=== PATIENT | female | born 1985 | race Caucasian/White ===

== ENCOUNTER 2019-03-25 23:10 | Outpatient (CLI) | payer MEDICAID | END 2019-03-26 03:31 | disposition home or self-care (01) | LOC: OBT 23:10 → L-D 23:12 | DX: O47.1 False labor at or after 37 completed weeks of gestation (principal); Z3A.38 38 weeks gestation of pregnancy | CPT/HCPCS: 76818 ==

== ENCOUNTER 2019-03-30 22:28 | Inpatient (IN) | payer MEDICAID ==
[2019-03-30] MEDS ORDERED: LACTATED RINGER'S 1,000 ML IV (23:21)
[2019-03-30 23:26] LABS: ADD UMIC NO; UR ASCORBIC ACID NEGATIVE (NEGATIVE); UR BILIRUBIN (Dip) NEGATIVE (NEGATIVE); UR BLOOD (Dip) NEGATIVE (NEGATIVE); UR CLARITY CLEAR (CLEAR); UR COLOR YELLOW (YELLOW); UR GLUCOSE (Dip) NEGATIVE (NEGATIVE); UR KETONES (Dip) NEGATIVE (NEGATIVE); UR LEUKOCYTE ESTERASE (Dip) NEGATIVE Leu/ul (NEGATIVE); UR NITRITE (Dip) NEGATIVE (NEGATIVE); UR SPECIFIC GRAVITY (Dip) 1.011 (1.003-1.030); UR TOTAL PROTEIN (Dip) NEGATIVE (NEGATIVE); UR UROBILINOGEN (Dip) NEGATIVE (NEGATIVE)
[2019-03-30] MEDS ORDERED: METHYLERGONOVINE 0.2 MG INJ IM (23:30)
[2019-03-30] MEDS ORDERED: OXYTOCIN 30 UNITS/LR 500 ML IV ×2 (23:30)
[2019-03-30] MEDS ORDERED: MISOPROSTOL 200 MCG TAB PR (23:30)
[2019-03-30] MEDS ORDERED: CARBOPROST 250 MCG INJ IM (23:30)
[2019-03-30] MEDS ORDERED: BUTORPHANOL 2 MG INJ IV (23:30)
[2019-03-30] MEDS ORDERED: LIDOCAINE 1% (MPF) 30 ML INJ INJ (23:30)
[2019-03-31] MEDS: LACTATED RINGER'S 1,000 ML IV ×2 (00:03→06:40)
[2019-03-31 00:23] LABS: ADD MAN DIFF? NO
[2019-03-31 00:28] LABS: BASOPHIL # 0.1 10^3/ul (0.0-0.1); BASOPHILS % 0.5 % (0.0-2.0); EOSINOPHILS # 0.2 10^3/ul (0.0-0.5); EOSINOPHILS % 1.4 % (0.0-7.0); HEMATOCRIT 37.2 % (37.0-47.0); HEMOGLOBIN 12.8 g/dl (12.0-16.0); MEAN CORPUSCULAR HEMOGLOBIN 31.8 pg (29.0-33.0); MEAN CORPUSCULAR HGB CONC 34.4 g/dl (32.0-37.0); MEAN CORPUSCULAR VOLUME 92.5 fl (82.0-101.0); MEAN PLATELET VOLUME 9.7 fl (7.4-10.4); MONOCYTE # 0.7 10^3/ul (0.3-0.9); MONOCYTES % 5.7 % (0.0-11.0); NEUTROPHIL # 8.8 10^3/ul (1.6-7.5); NEUTROPHILS % 74.3 % (39.0-77.0); PLATELET COUNT 296 10^3/UL (140-415); RED BLOOD COUNT 4.02 10^6/ul (4.20-5.40)
[2019-03-31 00:28] LABS: WHITE BLOOD COUNT 11.9 10^3/ul (4.8-10.8)
[2019-03-31 00:48] LABS: INR 0.88; PT RATIO 0.9
[2019-03-31 01:16] LABS: HEPATITIS B SURFACE ANTIGEN NEGATIVE (NEGATIVE)
[2019-03-31] MEDS: OXYTOCIN 30 UNITS/LR 500 ML IV ×4 (02:55→12:05)
[2019-03-31] MEDS: BUTORPHANOL 2 MG INJ IV (06:34)
[2019-03-31] MEDS ORDERED: OXYCODONE/ASPIRIN (4.88/325) TAB PO ×2 (08:00)
[2019-03-31] MEDS ORDERED: CARBOPROST 250 MCG INJ IM (08:00)
[2019-03-31] MEDS ORDERED: MISOPROSTOL 200 MCG TAB PR (08:00)
[2019-03-31] MEDS ORDERED: METHYLERGONOVINE 0.2 MG INJ IM (08:00)
[2019-03-31] MEDS ORDERED: LANOLIN HPA 1 PKT TOP (08:00)
[2019-03-31] MEDS ORDERED: OXYTOCIN 30 UNITS/LR 500 ML IV (08:00)
[2019-03-31] MEDS ORDERED: NACL 0.9% 3 ML SYG IV (08:00)
[2019-03-31] MEDS: IBUPROFEN 600 MG TAB PO ×4 (08:10→23:59)
[2019-03-31] MEDS: MINERAL OIL LIGHT 10 ML VIAL TOP (09:50)
[2019-03-31] MEDS: SENNA/DOCUSATE NA (8.6MG/50MG) TAB PO ×2 (11:53→22:03)
[2019-03-31 14:56] LABS: RAPID PLASMA REAGIN NONREACTIVE (NR)
[2019-03-31] MEDS: WITCH HAZEL/GLYCERIN PAD PR (17:51)
[2019-03-31] MEDS: BENZOCAINE 20% 56 ML SPRAY TOP (17:51)
[2019-04-01] MEDS: IBUPROFEN 600 MG TAB PO ×3 (06:01→17:49)
[2019-04-01 07:00] LABS: ADD MAN DIFF? NO
[2019-04-01 07:08] LABS: WHITE BLOOD COUNT 11.7 10^3/ul (4.8-10.8)
[2019-04-01 07:08] LABS: BASOPHIL # 0.1 10^3/ul (0.0-0.1); BASOPHILS % 0.4 % (0.0-2.0); EOSINOPHILS # 0.1 10^3/ul (0.0-0.5); EOSINOPHILS % 0.9 % (0.0-7.0); HEMATOCRIT 34.8 % (37.0-47.0); HEMOGLOBIN 11.9 g/dl (12.0-16.0); LYMPHOCYTES # 1.9 10^3/ul (0.8-2.9); LYMPHOCYTES % 16.1 % (15.0-51.0); MEAN CORPUSCULAR HGB CONC 34.2 g/dl (32.0-37.0); MEAN CORPUSCULAR VOLUME 93.5 fl (82.0-101.0); MEAN PLATELET VOLUME 9.6 fl (7.4-10.4); MONOCYTE # 0.8 10^3/ul (0.3-0.9); MONOCYTES % 6.7 % (0.0-11.0); NEUTROPHIL # 8.8 10^3/ul (1.6-7.5); NEUTROPHILS % 74.8 % (39.0-77.0); PLATELET COUNT 282 10^3/UL (140-415); RED BLOOD COUNT 3.72 10^6/ul (4.20-5.40); RED CELL DISTRIBUTION WIDTH 12.1 % (11.5-14.5)
[2019-04-01] MEDS: SENNA/DOCUSATE NA (8.6MG/50MG) TAB PO ×2 (08:39→21:02)
[2019-04-02] MEDS: IBUPROFEN 600 MG TAB PO ×3 (00:11→11:57)
[2019-04-02] MEDS: SENNA/DOCUSATE NA (8.6MG/50MG) TAB PO (09:02)
== END 2019-04-02 15:00 | disposition home or self-care (01) | DRG 807 ==
LOC: OBT 22:28 → L-D 03-31 06:10 → OBT 23:20 → PP1 03-31 09:52 → L-D 23:20
PROC: 10E0XZZ Delivery of Products of Conception, External Approach (ICD-10-PCS; principal; 2019-03-31)
DX: O80 Encounter for full-term uncomplicated delivery (principal); Z37.0 Single live birth; Z3A.39 39 weeks gestation of pregnancy
CPT/HCPCS: 76815; 81003; 85025; 85610; 85730; 86592; 86850; 86900; 86901; 87340; 99464